=== PATIENT | female | born 1950 | race Caucasian/White ===

== ENCOUNTER 2020-07-03 21:55 | Observation (INO) ==
[2020-07-04] MEDS ORDERED: ZALEPLON 5 MG CAPSULE PO PRN (00:32)
[2020-07-04] MEDS ORDERED: GLUCAGON 1 MG VIAL IM PRN ×2 (00:32)
[2020-07-04] MEDS ORDERED: ONDANSETRON 4 MG/2 ML VIAL IV PRN (00:32)
[2020-07-04] MEDS ORDERED: NICOTINE 21 MG/24 HR PATCH TRANSDERM PRN (00:32)
[2020-07-04] MEDS ORDERED: guaiFENesin/DM ER 600-30 MG TABLET PO PRN (00:32)
[2020-07-04] MEDS ORDERED: diphenhydrAMINE CAP 25 MG CAPSULE PO PRN (00:32)
[2020-07-04] MEDS ORDERED: hydrALAZINE 20 MG/1 ML VIAL IV PRN (00:32)
[2020-07-04] MEDS ORDERED: SIMETHICONE CHEW 125 MG TABLET PO PRN (00:32)
[2020-07-04] MEDS ORDERED: DEXTROSE 50% 25 GM/50 ML VIAL IV PRN ×2 (00:32)
[2020-07-04] MEDS ORDERED: BISACODYL 5 MG TABLET PO PRN (00:32)
[2020-07-04] MEDS ORDERED: INFLUENZA VIRUS VACCINE 0.5 ML SYRINGE IM ONE (00:35)
[2020-07-04] MEDS: ACETAMINOPHEN 325 MG TABLET PO PRN ×2 (01:28→06:42)
[2020-07-04] MEDS: SODIUM CHLORIDE 0.9% 1,000 ML IV SCH ×2 (01:30→10:03)
[2020-07-04 05:49] LABS: Basophils % 0.6 % (0.0-0.8); Eosinophils # 0.2 10*3/uL (0.0-0.87); Eosinophils % 2.5 % (0.00-10.9); Hematocrit 29.6 VOL% (35.7-47.0); Hemoglobin 9.7 GM/DL (12.0-16.0); Immature Granulocytes Absolute 0.07 #; Lymphocytes # 0.8 10*3/uL (1.4-4.0); Lymphocytes % 10.8 % (21.3-54.2); Mean Corpuscular HGB Conc 32.8 GM/DL (32-36); Mean Corpuscular Volume 84.8 FL (87-102); Mean Platelet Volume 10.6 FL (9.6-12.0); Monocytes % 10.2 % (1.7-12.7); Neutrophils % 74.9 % (38.7-73.9); Platelet Count 217 T/CUMM (130-400); Red Blood Count 3.49 MC/CUMM (3.8-5.5); Red Cell Distribution Width 16.2 % (9.3-17.3); White Blood Count 7.2 T/CUMM (4-12)
[2020-07-04 06:21] LABS: Albumin 2.4 G/DL (3.4-5.0); Bilirubin,Total 1.2 MG/DL (0.2-1.0); Calcium 8.7 MG/DL (8.5-10.1); Total Protein 7.1 G/DL (6.4-8.3)
[2020-07-04] MEDS ORDERED: rOPINIRole 1 MG TABLET PO ONE (10:06)
[2020-07-04] MEDS ORDERED: DICLOFENAC 1% GEL 100 GM TUBE TOP PRN (10:16)
[2020-07-04] MEDS: DILTIAZEM CD 240 MG CAPSULE PO SCH (10:58)
[2020-07-04] MEDS: CALCIUM (CARBONATE)/VITAMIN D 600 MG-400 UNIT TABLET PO SCH (10:59)
[2020-07-04] MEDS: PANTOPRAZOLE 40 MG TABLET PO SCH (10:59)
[2020-07-04] MEDS: MAGNESIUM CHLORIDE 64 MG TABLET PO SCH ×2 (11:10→21:20)
[2020-07-04] MEDS: ASCORBIC ACID 500 MG TABLET PO SCH (11:10)
[2020-07-04] MEDS: FERROUS SULFATE 325 MG TABLET PO SCH ×2 (11:11→23:45)
[2020-07-04] MEDS: levETIRAcetam 500 MG TABLET PO SCH ×2 (11:11→21:20)
[2020-07-04] MEDS: MULTIVITAMIN (CENTRUM) TABLET PO SCH (11:11)
[2020-07-04] MEDS: APIXABAN 2.5 MG TABLET PO SCH ×2 (11:11→21:21)
[2020-07-04] MEDS: CYANOCOBALAMIN 500 MCG TABLET PO SCH (11:11)
[2020-07-04] MEDS: MULTIVITAMIN (BEROCCA) TABLET PO SCH (11:11)
[2020-07-04] MEDS: FUROSEMIDE 40 MG TABLET PO SCH (11:21)
[2020-07-04] MEDS: POTASSIUM CHLORIDE 10 MEQ TABLET PO SCH ×2 (11:21→21:22)
[2020-07-04] MEDS: ASPIRIN 325 MG TABLET PO SCH (11:21)
[2020-07-04] MEDS: metFORMIN 500 MG TABLET PO SCH ×2 (11:21→21:20)
[2020-07-04] MEDS: INSULIN LISPRO 100 UNIT/ML SUBCUT SCH ×4 (11:51→23:39)
[2020-07-04] MEDS: MIRABEGRON 50 MG PO SCH (11:54)
[2020-07-04] MEDS ORDERED: TUBERCULIN SKIN TEST 0.1 ML SYRINGE INTRADERM ONE (16:49)
[2020-07-04] MEDS: rOPINIRole 1 MG TABLET PO SCH ×3 (18:52→23:42)
[2020-07-04] MEDS: PREGABALIN 100 MG CAPSULE PO SCH ×3 (18:52→23:41)
[2020-07-04] MEDS: MONTELUKAST 10 MG TABLET PO SCH (21:20)
[2020-07-04] MEDS: ATORVASTATIN 80 MG TABLET PO SCH (21:21)
[2020-07-05] MEDS: oxyCODONE/ACETAMINOPHEN 5-325 MG TABLET PO PRN ×2 (00:23→18:28)
[2020-07-05] MEDS: SODIUM CHLORIDE 0.9% 1,000 ML IV SCH ×4 (02:53→19:11)
[2020-07-05] MEDS: ASPIRIN 325 MG TABLET PO SCH (08:55)
[2020-07-05] MEDS: MULTIVITAMIN (CENTRUM) TABLET PO SCH (08:55)
[2020-07-05] MEDS: CHOLECALCIFEROL 1,000 UNIT TABLET PO SCH (08:55)
[2020-07-05] MEDS: levETIRAcetam 500 MG TABLET PO SCH ×2 (08:56→21:20)
[2020-07-05] MEDS: APIXABAN 2.5 MG TABLET PO SCH ×2 (08:56→21:08)
[2020-07-05] MEDS: CALCIUM (CARBONATE)/VITAMIN D 600 MG-400 UNIT TABLET PO SCH (08:56)
[2020-07-05] MEDS: DILTIAZEM CD 240 MG CAPSULE PO SCH (08:56)
[2020-07-05] MEDS: CYANOCOBALAMIN 500 MCG TABLET PO SCH (08:56)
[2020-07-05] MEDS: metFORMIN 500 MG TABLET PO SCH ×2 (08:56→21:07)
[2020-07-05] MEDS: PREGABALIN 100 MG CAPSULE PO SCH ×3 (08:56→21:07)
[2020-07-05] MEDS: MULTIVITAMIN (BEROCCA) TABLET PO SCH (08:56)
[2020-07-05] MEDS: PANTOPRAZOLE 40 MG TABLET PO SCH (08:57)
[2020-07-05] MEDS: FUROSEMIDE 40 MG TABLET PO SCH (08:57)
[2020-07-05] MEDS: POTASSIUM CHLORIDE 10 MEQ TABLET PO SCH ×2 (08:57→21:10)
[2020-07-05] MEDS: ASCORBIC ACID 500 MG TABLET PO SCH (08:57)
[2020-07-05] MEDS: MAGNESIUM CHLORIDE 64 MG TABLET PO SCH ×2 (08:57→21:08)
[2020-07-05] MEDS: FERROUS SULFATE 325 MG TABLET PO SCH ×2 (08:58→21:07)
[2020-07-05] MEDS: INSULIN LISPRO 100 UNIT/ML SUBCUT SCH ×4 (09:05→21:37)
[2020-07-05] MEDS: MIRABEGRON 50 MG PO SCH (09:06)
[2020-07-05] MEDS: rOPINIRole 1 MG TABLET PO SCH ×2 (18:27→21:08)
[2020-07-05] MEDS: ATORVASTATIN 80 MG TABLET PO SCH (21:08)
[2020-07-05] MEDS: MONTELUKAST 10 MG TABLET PO SCH (21:09)
[2020-07-06] MEDS: ACETAMINOPHEN 325 MG TABLET PO PRN (04:04)
[2020-07-06] MEDS: SODIUM CHLORIDE 0.9% 1,000 ML IV SCH ×3 (04:15→21:21)
[2020-07-06] MEDS: DILTIAZEM CD 240 MG CAPSULE PO SCH (10:39)
[2020-07-06] MEDS: POTASSIUM CHLORIDE 10 MEQ TABLET PO SCH ×2 (10:39→21:19)
[2020-07-06] MEDS: metFORMIN 500 MG TABLET PO SCH ×2 (10:39→21:20)
[2020-07-06] MEDS: MULTIVITAMIN (BEROCCA) TABLET PO SCH (10:39)
[2020-07-06] MEDS: PANTOPRAZOLE 40 MG TABLET PO SCH (10:39)
[2020-07-06] MEDS: MULTIVITAMIN (CENTRUM) TABLET PO SCH (10:39)
[2020-07-06] MEDS: MAGNESIUM CHLORIDE 64 MG TABLET PO SCH ×2 (10:40→21:20)
[2020-07-06] MEDS: CHOLECALCIFEROL 1,000 UNIT TABLET PO SCH (10:40)
[2020-07-06] MEDS: APIXABAN 2.5 MG TABLET PO SCH (10:40)
[2020-07-06] MEDS: CYANOCOBALAMIN 500 MCG TABLET PO SCH (10:40)
[2020-07-06] MEDS: ASPIRIN 325 MG TABLET PO SCH (10:40)
[2020-07-06] MEDS: ASCORBIC ACID 500 MG TABLET PO SCH (10:40)
[2020-07-06] MEDS: levETIRAcetam 500 MG TABLET PO SCH ×2 (10:41→21:20)
[2020-07-06] MEDS: CALCIUM (CARBONATE)/VITAMIN D 600 MG-400 UNIT TABLET PO SCH (10:41)
[2020-07-06] MEDS: PREGABALIN 100 MG CAPSULE PO SCH ×3 (10:41→21:20)
[2020-07-06] MEDS: FERROUS SULFATE 325 MG TABLET PO SCH ×2 (10:41→21:21)
[2020-07-06] MEDS: FUROSEMIDE 40 MG TABLET PO SCH (10:41)
[2020-07-06] MEDS: rOPINIRole 1 MG TABLET PO SCH ×2 (17:36→21:20)
[2020-07-06] MEDS: oxyCODONE/ACETAMINOPHEN 5-325 MG TABLET PO PRN (17:37)
[2020-07-06] MEDS: MIRABEGRON 50 MG PO SCH (19:17)
[2020-07-06] MEDS: INSULIN LISPRO 100 UNIT/ML SUBCUT SCH ×4 (19:19→22:20)
[2020-07-06] MEDS: ATORVASTATIN 80 MG TABLET PO SCH (21:19)
[2020-07-06] MEDS: DOCUSATE SODIUM 100 MG CAPSULE PO SCH (21:21)
[2020-07-06] MEDS: MONTELUKAST 10 MG TABLET PO SCH (21:21)
[2020-07-06] MEDS: APIXABAN 5 MG TABLET PO SCH (21:21)
[2020-07-06] MEDS: POLYETHYLENE GLYCOL POWDER 17 GM PACK PO SCH (21:23)
[2020-07-07] MEDS: SODIUM CHLORIDE 0.9% 1,000 ML IV SCH ×3 (03:57→18:30)
[2020-07-07 05:40] LABS: Basophils % 0.6 % (0.0-0.8); Eosinophils # 0.3 10*3/uL (0.0-0.87); Eosinophils % 3.5 % (0.00-10.9); Hematocrit 27.7 VOL% (35.7-47.0); Hemoglobin 8.9 GM/DL (12.0-16.0); Immature Granulocytes Absolute 0.07 #; Lymphocytes # 0.8 10*3/uL (1.4-4.0); Lymphocytes % 11.7 % (21.3-54.2); Mean Corpuscular HGB Conc 32.1 GM/DL (32-36); Mean Corpuscular Volume 85.8 FL (87-102); Mean Platelet Volume 10.2 FL (9.6-12.0); Monocytes % 9.6 % (1.7-12.7); Neutrophils % 73.6 % (38.7-73.9); Platelet Count 251 T/CUMM (130-400); Red Blood Count 3.23 MC/CUMM (3.8-5.5); Red Cell Distribution Width 16.9 % (9.3-17.3); White Blood Count 7.2 T/CUMM (4-12)
[2020-07-07 05:57] LABS: Calcium 7.9 MG/DL (8.5-10.1); Osmolality,Calculated 296.4 MOS/KG (273-304)
[2020-07-07] MEDS: INSULIN LISPRO 100 UNIT/ML SUBCUT SCH ×5 (08:20→21:28)
[2020-07-07] MEDS: FUROSEMIDE 40 MG TABLET PO SCH (08:21)
[2020-07-07] MEDS: DOCUSATE SODIUM 100 MG CAPSULE PO SCH ×2 (08:21→21:19)
[2020-07-07] MEDS: metFORMIN 500 MG TABLET PO SCH ×2 (08:21→21:20)
[2020-07-07] MEDS: ASPIRIN 325 MG TABLET PO SCH (08:21)
[2020-07-07] MEDS: ASCORBIC ACID 500 MG TABLET PO SCH (08:21)
[2020-07-07] MEDS: MULTIVITAMIN (BEROCCA) TABLET PO SCH (08:21)
[2020-07-07] MEDS: CYANOCOBALAMIN 500 MCG TABLET PO SCH (08:21)
[2020-07-07] MEDS: CHOLECALCIFEROL 1,000 UNIT TABLET PO SCH (08:22)
[2020-07-07] MEDS: APIXABAN 5 MG TABLET PO SCH ×2 (08:22→21:20)
[2020-07-07] MEDS: MULTIVITAMIN (CENTRUM) TABLET PO SCH (08:22)
[2020-07-07] MEDS: MAGNESIUM CHLORIDE 64 MG TABLET PO SCH ×2 (08:22→21:21)
[2020-07-07] MEDS: POTASSIUM CHLORIDE 10 MEQ TABLET PO SCH ×2 (08:22→21:21)
[2020-07-07] MEDS: levETIRAcetam 500 MG TABLET PO SCH ×2 (08:22→21:19)
[2020-07-07] MEDS: FERROUS SULFATE 325 MG TABLET PO SCH ×2 (08:22→21:19)
[2020-07-07] MEDS: CALCIUM (CARBONATE)/VITAMIN D 600 MG-400 UNIT TABLET PO SCH (08:22)
[2020-07-07] MEDS: PREGABALIN 100 MG CAPSULE PO SCH ×3 (08:22→21:19)
[2020-07-07] MEDS: PANTOPRAZOLE 40 MG TABLET PO SCH (08:23)
[2020-07-07] MEDS: DILTIAZEM CD 240 MG CAPSULE PO SCH (08:24)
[2020-07-07] MEDS: POLYETHYLENE GLYCOL POWDER 17 GM PACK PO SCH ×3 (08:25→21:17)
[2020-07-07] MEDS: ACETAMINOPHEN 325 MG TABLET PO PRN (08:30)
[2020-07-07] MEDS: MIRABEGRON 50 MG PO SCH (10:05)
[2020-07-07] MEDS: rOPINIRole 1 MG TABLET PO SCH ×2 (15:05→21:20)
[2020-07-07] MEDS: oxyCODONE/ACETAMINOPHEN 5-325 MG TABLET PO PRN (21:18)
[2020-07-07] MEDS: ATORVASTATIN 80 MG TABLET PO SCH (21:20)
[2020-07-07] MEDS: MONTELUKAST 10 MG TABLET PO SCH (21:21)
[2020-07-08] MEDS: SODIUM CHLORIDE 0.9% 1,000 ML IV SCH ×2 (05:27→09:55)
[2020-07-08 06:07] LABS: Basophils % 0.6 % (0.0-0.8); Eosinophils # 0.3 10*3/uL (0.0-0.87); Eosinophils % 4.6 % (0.00-10.9); Hematocrit 28.4 VOL% (35.7-47.0); Immature Granulocytes % 0.7 %; Immature Granulocytes Absolute 0.05 #; Lymphocytes # 0.8 10*3/uL (1.4-4.0); Lymphocytes % 11.4 % (21.3-54.2); Mean Corpuscular HGB Conc 31.7 GM/DL (32-36); Mean Corpuscular Volume 86.1 FL (87-102); Mean Platelet Volume 10.3 FL (9.6-12.0); Monocytes % 11.8 % (1.7-12.7); Neutrophils % 70.9 % (38.7-73.9); Platelet Count 249 T/CUMM (130-400); Red Cell Distribution Width 17.1 % (9.3-17.3); White Blood Count 6.7 T/CUMM (4-12)
[2020-07-08 06:42] LABS: Calcium 8.4 MG/DL (8.5-10.1)
[2020-07-08] MEDS: INSULIN LISPRO 100 UNIT/ML SUBCUT SCH ×2 (09:14→11:17)
[2020-07-08] MEDS: MAGNESIUM CHLORIDE 64 MG TABLET PO SCH (09:38)
[2020-07-08] MEDS: CALCIUM (CARBONATE)/VITAMIN D 600 MG-400 UNIT TABLET PO SCH (09:40)
[2020-07-08] MEDS: FERROUS SULFATE 325 MG TABLET PO SCH (09:40)
[2020-07-08] MEDS: PANTOPRAZOLE 40 MG TABLET PO SCH (09:41)
[2020-07-08] MEDS: DOCUSATE SODIUM 100 MG CAPSULE PO SCH (09:41)
[2020-07-08] MEDS: CYANOCOBALAMIN 500 MCG TABLET PO SCH (09:41)
[2020-07-08] MEDS: POTASSIUM CHLORIDE 10 MEQ TABLET PO SCH (09:42)
[2020-07-08] MEDS: MULTIVITAMIN (BEROCCA) TABLET PO SCH (09:42)
[2020-07-08] MEDS: ASPIRIN 325 MG TABLET PO SCH (09:42)
[2020-07-08] MEDS: MULTIVITAMIN (CENTRUM) TABLET PO SCH (09:43)
[2020-07-08] MEDS: CHOLECALCIFEROL 1,000 UNIT TABLET PO SCH (09:43)
[2020-07-08] MEDS: PREGABALIN 100 MG CAPSULE PO SCH ×2 (09:43→15:30)
[2020-07-08] MEDS: APIXABAN 5 MG TABLET PO SCH (09:44)
[2020-07-08] MEDS: metFORMIN 500 MG TABLET PO SCH (09:44)
[2020-07-08] MEDS: DILTIAZEM CD 240 MG CAPSULE PO SCH (09:45)
[2020-07-08] MEDS: ASCORBIC ACID 500 MG TABLET PO SCH (09:46)
[2020-07-08] MEDS: levETIRAcetam 500 MG TABLET PO SCH (09:46)
[2020-07-08] MEDS: FUROSEMIDE 40 MG TABLET PO SCH (09:46)
[2020-07-08] MEDS: POLYETHYLENE GLYCOL POWDER 17 GM PACK PO SCH ×2 (09:51→15:31)
[2020-07-08] MEDS: MIRABEGRON 50 MG PO SCH (10:12)
[2020-07-08] MEDS: rOPINIRole 1 MG TABLET PO SCH (15:30)
[2020-07-08 15:37] VITALS: BP 116/41
== END 2020-07-08 16:35 ==
LOC: N.3E 23:20 → SUATTDRO 23:20 → INTOOBSV 23:20
PROVIDERS: ADMIT Internal Medicine; ATTEND Internal Medicine